=== PATIENT | female | born 1990 | race Caucasian/White ===

== ENCOUNTER 2017-05-24 23:35 | Emergency (ER) | payer OTHER ==
[~2017-05-24] VITALS: Ht 154.9 cm; Wt 97.5 kg
[2017-05-25] MEDS ORDERED: DOXYCYCLINE 10100 MG PO (02:19)
[2017-05-25] MEDS ORDERED: TRAMADOL 50 MG50 MG PO (02:19)
[2017-05-25 06:18] VITALS: BP 136/83
== END 2017-05-25 02:35 | disposition home or self-care (01) ==
LOC: ER 23:35
DX: L03.116 Cellulitis of left lower limb (principal); E11.9 Type 2 diabetes mellitus without complications; F17.200 Nicotine dependence, unspecified, uncomplicated